=== PATIENT | female | born 1940 | race Caucasian/White ===

== ENCOUNTER 2023-11-07 12:58 | Inpatient (IN) | payer MEDICARE, OTHER ==
[~2023-11-07] VITALS: Ht 157.5 cm; Wt 83.0 kg
[2023-11-07 15:00] LABS: Eosinophils # (auto) 0.1 10 ^3/uL (0-0.8); Eosinophils % (auto) 0.7 % (0.0-7.0); Monocytes # (auto) 1.2 10 ^3/uL (0-1.3); Neutrophils # (auto) 17.6 10 ^3/uL (1.6-8.6)
[2023-11-07 15:02] LABS: Basophils # (auto) 0 10 ^3/uL (0-0.2); Basophils % (auto) 0.2 % (0.0-2.0); Hematocrit 39.1 % (36.0-46.0); Lymphocytes # (auto) 0.7 10 ^3/uL (0.4-5.4); Lymphocytes % (auto) 3.5 % (10.0-50.0); Mean Corpuscular Hemoglobin 30.8 pg (28.0-32.0); Mean Corpuscular Hgb Conc. 33.4 g/dL (32.0-36.0); Mean Corpuscular Volume 92.4 fL (80.0-100.0); Monocytes % (auto) 6.2 % (0.0-12.0); Neutrophils % (auto) 89.4 % (37.0-80.0); Red Blood Cells 4.23 10^6/uL (4.0-5.20); Red Cell Distribution Width 13.9 % (11.8-14.3); White Blood Cell 19.7 10^3/uL (4.4-10.8)
[2023-11-07 15:11] LABS: Chloride 102 mmol/L (98-107); Potassium 3.5 mmol/L (3.5-5.1); Sodium 136 mmol/L (136-145)
[2023-11-07 15:12] LABS: Anion Gap 9 (5-15); Calcium 9.5 mg/dL (8.5-10.1); Carbon Dioxide 25 mmol/L (20-30)
[2023-11-07 15:17] LABS: BUN/Creatinine Ratio 19.5 (10.0-20.0); Blood Urea Nitrogen 22 mg/dL (9-23); Glucose 110 mg/dL (74-106)
[2023-11-07 17:18] VITALS: PULSE 113; RESP 20; O2SAT 91
[2023-11-07] MEDS: cefTRIAXone 1GM/50ML D5W 50 ML IV ONE (17:29)
[2023-11-07] MEDS: AZITHROMYCIN 500MG/ 250ML 250 ML IV ONE (17:29)
[2023-11-07] MEDS ORDERED: HYDR12.59 PO (18:05)
[2023-11-07] MEDS ORDERED: CYAN100028 SL (18:05)
[2023-11-07] MEDS ORDERED: METF-370 PO (18:05)
[2023-11-07] MEDS ORDERED: LORA-1123 PO (18:05)
[2023-11-07] MEDS ORDERED: METH-1181 PO (18:05)
[2023-11-07] MEDS ORDERED: ROSU10TA64 PO (18:05)
[2023-11-07] MEDS ORDERED: TRAM50TA2 PO (18:05)
[2023-11-07] MEDS ORDERED: IRBE300T43 PO (18:05)
[2023-11-07] MEDS ORDERED: ESTR1TAB6 PO (18:05)
[2023-11-07] MEDS ORDERED: PANT40T PO (18:05)
[2023-11-07] MEDS ORDERED: AZIT-43 PO (18:05)
[2023-11-07] MEDS ORDERED: ALBU108A5 INH (18:05)
[2023-11-07] MEDS ORDERED: CLOP75TA70 PO (18:05)
[2023-11-07] MEDS ORDERED: DEXTROSE (50%) 50ML SYRG IV PRN (18:15)
[2023-11-07] MEDS: ASPirin 81 mg TAB PO ONE (18:18)
[2023-11-07] MEDS: ONDANSETRON HCL 4 MG/2 ML VIAL IV ONE (18:18)
[2023-11-07] MEDS: MORPHINE SULFATE INJ 2 MG/ml SYRG IV ONE (18:19)
[2023-11-07 18:35] LABS: Triglycerides 117 mg/dL (< 150)
[2023-11-07 18:36] LABS: LDL Cholesterol 37 mg/dL (< 100)
[2023-11-07 18:37] LABS: Cholesterol 86 mg/dL (< 200); HDL Cholesterol 31 mg/dL (40-59)
[2023-11-07 19:06] VITALS: BP 153/75; PULSE 119; RESP 20; O2SAT 92
[2023-11-07 19:33] VITALS: PULSE 107; RESP 18; O2SAT 95
[2023-11-07] MEDS: SODIUM CHLORIDE 0.9% 1,000 ML IV SCH (20:31)
[2023-11-07 20:34] LABS: Urine Bacteria None Seen /hpf (None Seen)
[2023-11-07 20:49] LABS: Urine Blood Negative /uL (Negative); Urine Clarity Turbid (Clear); Urine Color Yellow (Yellow); Urine Mucus FEW (None Seen); Urine Protein, UAD 1+ (Negative); Urine Specific Gravity 1.026 (1.001-1.035); Urine Urobilinogen Normal (Negative); Urine WBC 4 /hpf (0 - 5); Urine pH 5.5 (5.0-9.0)
[2023-11-07 22:20] VITALS: O2SAT 96
[2023-11-07] MEDS: METHOCARBAMOL 500 MG TAB PO SCH (22:22)
[2023-11-07] MEDS: ACCU-CHEK COMFORT CURVE STRIP VI SCH (22:33)
[2023-11-07] MEDS: InsuLIN REG 1unit/0.01ml Soln (100units/ml) SC SCH (22:33)
[2023-11-07 22:51] VITALS: PULSE 102; RESP 20; O2SAT 97
[2023-11-08] VITALS (10 sets, daily range): BP systolic 133–156; BP diastolic 57–90; PULSE 84–106; RESP 17–20; TEMP 97.4–98; O2SAT 90–99
[2023-11-08] MEDS: HYDROcodone-ACET 5/325MG TAB PO PRN (00:21)
[2023-11-08] MEDS: ACETAMINOPHEN 325 MG TAB PO PRN (04:29)
[2023-11-08 05:43] LABS: Basophils # (auto) 0 10 ^3/uL (0-0.2); Basophils % (auto) 0.1 % (0.0-2.0); Eosinophils # (auto) 0.1 10 ^3/uL (0-0.8); Eosinophils % (auto) 0.7 % (0.0-7.0); Hematocrit 35.9 % (36.0-46.0); Hemoglobin 12.1 g/dL (12.2-16.2); Lymphocytes # (auto) 0.7 10 ^3/uL (0.4-5.4); Lymphocytes % (auto) 4.4 % (10.0-50.0); Mean Corpuscular Hgb Conc. 33.7 g/dL (32.0-36.0); Monocytes # (auto) 1.1 10 ^3/uL (0-1.3); Monocytes % (auto) 7.1 % (0.0-12.0); Neutrophils # (auto) 13.5 10 ^3/uL (1.6-8.6); Neutrophils % (auto) 87.7 % (37.0-80.0); White Blood Cell 15.4 10^3/uL (4.4-10.8)
[2023-11-08 06:02] LABS: Alanine Aminotransferase 16 U/L (7-40); Albumin 3.1 g/dL (3.2-4.8); Alkaline Phosphatase 138 U/L (46-116); Anion Gap 5 (5-15); Aspartate Aminotransferase 27 U/L (13-40); BUN/Creatinine Ratio 21.4 (10.0-20.0); Blood Urea Nitrogen 25 mg/dL (9-23); Calcium 8.9 mg/dL (8.5-10.1); Carbon Dioxide 27 mmol/L (20-30); Chloride 103 mmol/L (98-107); Glucose 118 mg/dL (74-106); Potassium 3.9 mmol/L (3.5-5.1); Sodium 135 mmol/L (136-145)
[2023-11-08 06:03] LABS: Bilirubin, Total 0.4 mg/dL (0.2-1.0); Total Protein 5.5 g/dL (5.7-8.2)
[2023-11-08] MEDS: cefTRIAXone 1GM/50ML D5W 50 ML IV SCH (09:39)
[2023-11-08] MEDS: AZITHROMYCIN 500MG/ 250ML 250 ML IV SCH (09:41)
[2023-11-08] MEDS: CYANOCOBALAMIN 500 MCG TAB PO SCH (09:42)
[2023-11-08] MEDS: PANTOPRAZOLE 40 MG TAB PO SCH (09:42)
[2023-11-08] MEDS: CLOPIDOGREL BISULFATE 75 MG TAB PO SCH (09:43)
[2023-11-08] MEDS: LOSARTAN POTASSIUM 50 MG TAB PO SCH (09:44)
[2023-11-08] MEDS: hydroCHLOROthiazide 25 MG TAB PO SCH (09:45)
[2023-11-08] MEDS: ENOXAPARIN SOD 40 MG/0.4 ML SYRINGE SC SCH (09:47)
[2023-11-08] MEDS: ESTRADIOL 1 MG TAB PO SCH (10:00)
[2023-11-09] VITALS (11 sets, daily range): BP systolic 117–160; BP diastolic 60–90; PULSE 56–96; RESP 16–22; TEMP 97.2–97.9; O2SAT 75–100
[2023-11-09] MEDS: NITROGLYCERIN 0.4 MG SL TAB SL ONE (12:25)
[2023-11-09] MEDS: MORPHINE SULFATE INJ 2 MG/ml SYRG IV ONE (12:26)
[2023-11-09 19:58] LABS: COVID19 ANTIGEN SOFIA FIA NEGATIVE (NEGATIVE); Rapid Influenza A Negative (Negative); Rapid Influenza B Negative (Negative)
[2023-11-09] MEDS: ATORVASTATIN 20 MG TAB PO SCH (20:24)
[2023-11-09] MEDS: ALBUTEROL SULF 2.5 MG/0.5ML(0.5%) NEB SOLN NEB PRN (21:50)
[2023-11-10] VITALS (7 sets, daily range): BP systolic 130–169; BP diastolic 63–94; PULSE 77–99; RESP 17–21; TEMP 98–98.7; O2SAT 91–99
[2023-11-10] MEDS: ASPirin-EC 81 mg tab PO SCH (08:40)
[2023-11-10] MEDS: LORazepam 2MG/ML-1ML VIAL IV PRN (11:55)
[2023-11-10 12:59] LABS: Folate (Folic Acid) 7.78 ng/mL (>5.38)
[2023-11-11] VITALS (9 sets, daily range): BP systolic 153–167; BP diastolic 71–106; PULSE 84–108; RESP 17–20; TEMP 97.8–98.5; O2SAT 96–100
[2023-11-11 12:21] LABS: INR 1.07 (0.9-1.15); Partial Thromboplastin Time 27.8 SEC (24.5-34.5); Prothrombin Time 11.3 sec (9.3-11.8)
[2023-11-11] MEDS: cloNIDine HCL 0.1 MG TAB PO PRN (21:36)
[2023-11-12 01:11] VITALS: BP 133/83; PULSE 102; RESP 18; TEMP 98.4; O2SAT 98
[2023-11-12 05:10] VITALS: BP 112/70; PULSE 97; RESP 18; TEMP 98.6; O2SAT 97
[2023-11-12 09:00] VITALS: BP 149/84; PULSE 97; RESP 15; TEMP 97.4; O2SAT 96
[2023-11-12 09:18] VITALS: O2SAT 97
[2023-11-12 12:38] VITALS: BP 131/88; PULSE 84; RESP 17; TEMP 98.2; O2SAT 97
[2023-11-12 16:30] VITALS: BP 163/88; PULSE 91; RESP 16; TEMP 97.6; O2SAT 97
[2023-11-13] MEDS ORDERED: CEFT1PM IV (11:19)
[2023-11-13] MEDS ORDERED: ALBU0.084 NEB (12:23)
== END 2023-11-12 17:25 | DRG 871 ==
LOC: EDBD 12:58 → ER 12:58 → EAST 18:04 → OVERFLOW 18:04 → EAST 21:05
PROVIDERS: ADMIT Nurse Practitioner Family; ATTEND Family Medicine
PROC: 05HC33Z Insertion of Infusion Device into Left Basilic Vein, Percutaneous Approach (ICD-10-PCS; principal; 2023-11-12)
PROC: B54NZZA Ultrasonography of Left Upper Extremity Veins, Guidance (ICD-10-PCS; 2023-11-12)
DX: A41.9 Sepsis, unspecified organism (principal); G93.41 Metabolic encephalopathy; J18.9 Pneumonia, unspecified organism; J96.01 Acute respiratory failure with hypoxia; G40.209 Localization-related (focal) (partial) symptomatic epilepsy and epileptic syndromes with complex partial seizures, not intractable, without status epilepticus; J90 Pleural effusion, not elsewhere classified; S09.90XA Unspecified injury of head, initial encounter; I10 Essential (primary) hypertension; G89.29 Other chronic pain; E66.01 Morbid (severe) obesity due to excess calories; W01.0XXA Fall on same level from slipping, tripping and stumbling without subsequent striking against object, initial encounter; M54.9 Dorsalgia, unspecified; F03.90 Unspecified dementia, unspecified severity, without behavioral disturbance, psychotic disturbance, mood disturbance, and anxiety; Z20.822 Contact with and (suspected) exposure to COVID-19; E11.9 Type 2 diabetes mellitus without complications; Z79.899 Other long term (current) drug therapy; Z68.33 Body mass index [BMI] 33.0-33.9, adult; Z86.73 Personal history of transient ischemic attack (TIA), and cerebral infarction without residual deficits; Z82.0 Family history of epilepsy and other diseases of the nervous system; Z82.49 Family history of ischemic heart disease and other diseases of the circulatory system; Z79.82 Long term (current) use of aspirin; Z87.891 Personal history of nicotine dependence; Z90.710 Acquired absence of both cervix and uterus; Y93.89 Activity, other specified; Y92.89 Other specified places as the place of occurrence of the external cause; Y99.8 Other external cause status
CPT/HCPCS: 36415; 70450; 70551; 71045; 72131; 72146; 72170; 73030; 76604; 80048; 80053; 80061; 81001; 82607; 82746; 82962; 83036; 84443; 84484; 85025; 85610; 85730; 87040; 87081; 87426; 87804; 93005; 93306; 93886; 94640; 95819; 96365; 96367; 96375; 97110; 97163; 97530; G0378; J1815; J2405

== ENCOUNTER 2023-11-13 10:43 | Emergency (ER) | payer MEDICARE ==
[~2023-11-13] VITALS: Ht 157.5 cm; Wt 78.1 kg
[~2023-11-13 10:43] MED LIST: ALBU108A5 INH; AZIT-43 PO; CLOP75TA70 PO; CYAN100028 SL; ESTR1TAB6 PO; HYDR12.59 PO; IRBE300T43 PO; LORA-1123 PO; METF-370 PO; METH-1181 PO; PANT40T PO; ROSU10TA64 PO; TRAM50TA2 PO
[2023-11-13 11:05] VITALS: BP 136/75
[2023-11-13] MEDS ORDERED: CEFT1PM IV (11:19)
[2023-11-13] MEDS: metFORMIN HYDROCHLORIDE 500 MG TAB PO ONE (11:40)
[2023-11-13] MEDS: ASPirin 325 MG TAB PO ONE (11:40)
[2023-11-13 11:42] VITALS: PULSE 74; RESP 18; O2SAT 97
[2023-11-13] MEDS: ALBUTEROL SULF 2.5 MG/0.5ML(0.5%) NEB SOLN NEB ONE (12:08)
[2023-11-13] MEDS: IPRATROPIUM BROM 0.5 MG/2.5ML INH SOL NEB ONE (12:08)
[2023-11-13 12:09] VITALS: RESP 18; O2SAT 95
[2023-11-13] MEDS ORDERED: ALBU0.084 NEB (12:23)
== END 2023-11-13 12:14 | disposition home or self-care (01) ==
LOC: ER 10:43
DX: Z00.00 Encounter for general adult medical examination without abnormal findings (principal); Z76.0 Encounter for issue of repeat prescription; I10 Essential (primary) hypertension; E11.9 Type 2 diabetes mellitus without complications; Z79.899 Other long term (current) drug therapy
CPT/HCPCS: 82962; 94640; 99283; J7644